=== PATIENT | male | born 1995 | race Caucasian/White ===

== ENCOUNTER 2019-11-01 16:07 | Emergency (ER) | payer OTHER, SELFPAY ==
[2019-11-01 16:15] VITALS: BP 148/74; PULSE 126; RESP 16; TEMP 38.4; O2SAT 100
--- NOTE | 2019-11-01 16:35 | ED.URI ---
HPI - URI/Sore Throat General Chief Complaint: Upper Respiratory Infection Stated Complaint: COUGH/FEVER Time Seen by Provider: 11/01/19 16:35 Source: patient and RN notes reviewed Mode of arrival: ambulatory Limitations: no limitations History of Present Illness HPI Narrative: 24-year-old old male presents with concern for fever, body aches, chills, cough. Reports symptoms started this morning and it worsened throughout the day. MD elicited complaint: cough Related Data Allergies Allergy/AdvReac Type Severity Reaction Status Date / Time No Known Allergies Allergy Unverified 04/12/19 11:25 Review of Systems Review of Systems: Narrative: CONSTITUTIONAL: Reports malaise, chills, sweats, fever. EYES: Denies visual changes, redness, or discharge. ENT: Reports rhinorrhea. Denies congestion, sinus pain, otalgia and sore throat. CARDIOVASCULAR: Denies chest pain, palpitations, or edema. RESPIRATORY: Reports cough, chest congestion. Denies dyspnea. GASTROINTESTINAL: Denies abdominal pain, nausea, vomiting, diarrhea SKIN: Denies rash or itching. MUSCULOSKELETAL: Reports myalgia. NEUROLOGIC: Reports headache. All systems reviewed & are unremarkable except as noted in HPI and below PMFSH Social History Social History Smoking status: Never smoker Alcohol intake: current Comments At time of signature, agree with nursing past medical, surgical, social and family history. There is no relevant family history pertinent to the presenting complaint Exam Narrative: Exam Narrative: GENERAL: Well-appearing, well-nourished, and in no acute distress. HEAD: Normocephalic EYES: PERRLA, conjunctivae clear ENT: Nares clear, turbinates erythematous, clear discharge. Mucous membranes moist. TM pearly ching with sharp light reflex bilaterally; no tragal tenderness. Oropharynx not erythematous without lesions. Tonsils not enlarged and without exudate, no drooling, no hoarseness, no trismus. NECK: Supple. No lymphadenopathy CHEST: Clear to auscultation, breath sounds equal. No wheezing, rhonchi, rales, or stridor. No respiratory distress, speaks in full sentences. Cough noted HEART: Regular rate and rhythm. No murmur heard. Normal peripheral pulses. SKIN: Warm, clammy, no rash. NEURO: Alert and oriented x3. PSYCH: Normal mood and affect Course Course Emergency Course: Patient is aware of diagnosis, understands and agrees to treatment plan. Anticipatory guidance given. Patient agrees to follow-up as directed and is aware of reasons to seek care at the emergency department. Portions of this record may have been created with voice recognition software Vital Signs Vital signs: Vital Signs Temperature 101.2 F H 11/01/19 16:15 Pulse Rate 126 H 11/01/19 16:15 Respiratory Rate 16 11/01/19 16:15 Blood Pressure 148/74 H 11/01/19 16:15 Pulse Oximetry 100 11/01/19 16:15 Temperature 101.2 F H 11/01/19 16:15 Pulse Rate 126 H 11/01/19 16:15 Respiratory Rate 16 11/01/19 16:15 Blood Pressure 148/74 H 11/01/19 16:15 Pulse Oximetry 100 11/01/19 16:15 Reviewed. Pt has been instructed to follow up with his primary care provider within the next week regarding his elevated blood pressure today. MDM - URI/Sore Throat MDM Narrative Medical decision making narrative: Differential diagnosis considered: Strep pharyngitis, allergic rhinitis, upper respiratory tract infection, sinusitis, rhinosinusitis, nasopharyngitis. viral pharyngitis, otitis media, otitis externa, pneumonia, bronchitis, viral cough syndrome, viral syndrome, and influenza. Exam findings show no acute concerns or changes; patient is non-toxic appearing and is in no distress. Patient is appropriate for outpatient treatment and follow-up. Lab Data Attestation: I reviewed the patient's lab results. Labs: Influenza A Screen Negative Reference Range: Negative Influenza B Screen Negative Reference Range: Negative Critical Care
== END 2019-11-01 16:53 | disposition home or self-care (01) ==
PROVIDERS: Emergency Provider Nurse Practitioner
DX: R05 Cough (principal); R50.9 Fever, unspecified; R52 Pain, unspecified
CPT/HCPCS: 87804; 99213; G0463

== ENCOUNTER 2020-11-13 13:05 | Outpatient (CLI) | payer OTHER, SELFPAY | END 2020-11-13 13:06 | disposition home or self-care (01) | PROVIDERS: PCP Internal Medicine; Referring Provider Otolaryngology; Visit Provider Otolaryngology | DX: R42 Dizziness and giddiness (principal) | CPT/HCPCS: 92557; 92567 ==

== ENCOUNTER 2020-12-23 13:30 | Outpatient (RCR) | payer OTHER, SELFPAY ==
--- NOTE | 2020-11-18 14:07 | PTOPEVAL ---
PHYSICAL THERAPY EVALUATION AND PLAN OF CARE 11-18-20 Thank you for referring Robles Guzmán to [facility] for the diagnosis of vertigo.? His treatment plan includes treatment for cervical spine and headaches. Robles is scheduled to be seen for therapy? 1-2 x/week for 5 weeks. Please review, sign, date and return this plan of care DILAN. I agree with and certify that the following plan of care is medically necessary. Referring Physician Date Referring Provider: Ramiro Smith MD PT Outpatient Evaluation Document 11/18/20 12:35 VENANCIO (Rec: 11/18/20 14:07 VENANCIO [id number]) Outpatient Past Medical History Past Medical History Source of Past Medical History Patient Neurological History Hx Neurological Disorders No Significant History Cardiovascular History Hx Cardiac Disorders No Significant History Respiratory History Hx Respiratory Disorders No Significant History Gastrointestinal History Hx Gastroesophageal Reflux Disease Yes Musculoskeletal History Hx Back Pain Yes Hx Orthopedic Surgery Yes: L knee ACL/meniscal repair Hx Other Musculoskeletal Disorders Yes: chronic back &neck pain, chiropractor tx 1x/mo Endocrine History Hx Endocrine Disorders No Significant History HEENT History Hx Sinus Problems Yes: dry & stuffy nose; sinus drainage & pressure; Hx Other HEENT Disorders Yes: wear glasses, need eye exam,been about 1 yr Psychosocial History Hx Anxiety Yes: increased stress Evaluation Information Problem Diagnosis dizziness Onset Apr 2020 Prior Level of Function Activity Level (Last 3 Months) 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[employer]; computer work Activity of Daily Living Ability Independent Indoor/Home Mobility Independent Community Mobility Independent Stairs Ability Independent Functional Cognition (Planning, Shopping Independent , Taking Medications) Cooking Yes Cleaning Yes Laundry Yes Shopping Yes Driving Yes Comments Additional Prior Level of Function doing all home and work tasks Comments but problems with dizziness and not comfortable with performing, singing; standing and moving more troublesome; sitting tasks are OK Pain Assessment Timing of Pain Assessment Timing of Pain Assessment Assessment Pain Scale Pain Scale Used Numeric (1 - 10) Self Report Pain Assessment Bilateral Spine, C
--- NOTE | 2020-12-09 13:53 | PCPTNOTE ---
Patient did not show up for scheduled appointment this date. Called and had to leave a message.
--- NOTE | 2020-12-16 13:52 | PCPTNOTE ---
Patient did not show up for scheduled appointment this date. Called and patient stated he got stuck at work and forgot to call.
--- NOTE | 2020-12-23 14:23 | PTOPEVAL ---
PHYSICAL THERAPY DISCHARGE 12-23-- Refer to the clinical summary below for his status today, compared to the initial evaluation. The goals were achieved, except pain rating at the worst, in upper traps area. Thank you for referring Robles Guzmán to [facility].? Please review, sign, date and return this discharge DILAN. I agree with and certify that the following plan of care is medically necessary. Referring Physician Date Referring Provider: Ramiro Smith MD *PT Outpatient Discharge Document 12/23/20 13:35 VENANCIO (Rec: 12/23/20 14:23 VENANCIO [id number]) Subjective Information Robles reports: have not had any Query Text:As Reported By Patient/ dizziness for past 10 days; Family have pain in upper back- going to chiropractor and stretching it; using theracane to get the spot loosened up; had to fly out of [place] unexpectedly and that was kind of hard; one time in the past week, slight ringing in ear, but gone away before any problems, hardly noticed Pain Assessment Timing of Pain Assessment Timing of Pain Assessment Assessment Pain Scale Pain Scale Used Numeric (1 - 10) Self Report Pain Assessment Bilateral Spine, Cervical Reported Pain Level 2 Pain Frequency Chronic Other Pain Description no headaches for past week; Lowest Pain Intensity 0 Greatest Pain Intensity 4 Other Pain Aggravating Factors reach across body- horizontal adduction; Pain Score Pain Score 2: Self Report Additional Pain Score Comments feeling better overall-- more exercise and eating better; have been watching posture and holding better position of back; stress of my life is less; Interventions Used Interventions Used By Clinicians Education,Exercise Posture Posture Standing Position Posture Evaluation View Posterior Head/C-Spine Posture Forward Head Thoracic Spine Posture Flattened Lumbar Spine Posture Increased Lordosis Arm Posture (L) Internally Rotated,(R) Internally Rotated Pelvis Posture Anteriorly Tilted,(R) Iliac Crest Superior Additional Posture Comments verbal review of posture with sitting at computer, play guitar; increased break times and stretching
== END 2020-12-25 08:37 | disposition home or self-care (01) ==
LOC: ANHPT 13:30
PROVIDERS: PCP Internal Medicine; Referring Provider Otolaryngology; Visit Provider Otolaryngology
DX: R42 Dizziness and giddiness (principal)
CPT/HCPCS: 97110; 97162